=== PATIENT | female | born 1995 | race Two or more races ===

== ENCOUNTER 2024-08-24 21:40 | Observation (INO) | payer MEDICAID, SELFPAY ==
[2024-08-24] VITALS (12 sets, daily range): BP systolic 124–138; BP diastolic 79–84; PULSE 56–75; RESP 19; TEMP 36.6; O2SAT 97–100; BMI 32.5
[2024-08-24 22:34] LABS: Collection Type, Urine Clean Catch
[2024-08-24 22:41] LABS: Bilirubin,Urine Negative (Negative); Blood,Urine Negative (Negative); Clarity,Urine Clear (Clear/Hazy); Color,Urine Lt-Yellow (Lt Yel-Yel); Glucose, Urine Negative (Negative); Ketones,Urine Negative (Negative); Leukocyte Esterase,Urine Negative (Negative); Nitrite,Urine Negative (Negative); PH,Urine 6.5 (5.0-7.0); Protein,Urine Negative (Neg - Trace); RBC,Urine < 1 /hpf (0-3); Specific Gravity,Urine 1.015 (1.001-1.035); Squamous Epithelial Cell,Urine < 1 /hpf (0-5); Urobilinogen,Urine Negative mg/dL (0.0-1.0); WBC,Urine 1 /hpf (0-5)
[2024-08-24 22:42] LABS: Basophils % (Auto) 0 % (0-2.5); Eosinophils % (Auto) 0 % (0-10); Hematocrit 32.4 % (36.0-46.0); Hemoglobin 10.9 g/dL (12.0-16.0); Immature Granulocytes % (Auto) 0 % (0-0); Immature Granulocytes Auto 0.02 Thou/mm3 (0.00-0.00); Lymphocytes # (Auto) 2.1 Thou/mm3 (1.0-4.8); Lymphocytes % (Auto) 34 % (10-50); Mean Corpuscular HGB Conc 33.6 g/dl (31.0-37.0); Mean Corpuscular Hemoglobin 30.6 pg (25.0-35.0); Mean Corpuscular Volume 91 fL (80-100); Monocytes # (Auto) 0.5 Thou/mm3 (0.0-0.8); Monocytes % (Auto) 9 % (0-12); Neutrophils # (Auto) 3.6 Thou/mm3 (1.8-7.7); Neutrophils % (Auto) 57 % (37-80); Nucleated Red Blood Cell % 0 /100 WBC (0); Platelet Count 151 Thou/mm3 (140-440); RDW Standard Deviation 41.1 fL (36.4-46.3); Red Blood Count 3.56 Miln/mm3 (4.00-5.20); White Blood Count 6.3 Thou/mm3 (3.6-11.0)
[2024-08-24 23:05] LABS: Fibrinogen 427 mg/dL (175-375); INR 0.9 (0.9-1.3); Partial Thromboplastin Time 29.6 Seconds (22.0-36.0); Prothrombin Time 9.9 Seconds (9.0-12.2)
[2024-08-24 23:16] LABS: Anion Gap 7 (7-16); BUN/Creatinine Ratio 18 Ratio (12-20); Blood Urea Nitrogen 11 mg/dL (9-23); Carbon Dioxide 18.7 mMol/L (20.0-31.0); Chloride 110 mMol/L (98-107); Creatinine (Component) 0.6 mg/dL (0.6-1.3); Estimated Creatinine Clearance 142.9 mL/min (>60); Potassium 3.9 mMol/L (3.4-5.1); Sodium 136 mMol/L (136-145); eGFR > 60 See Note
[2024-08-24 23:17] LABS: Alanine Aminotransferase 13 U/L (10-49); Albumin, Serum 3.6 gm/dL (3.5-5.0); Albumin/Globulin Ratio 1.5 (1.2-2.2); Alkaline Phosphatase 190 U/L (46-116); Aspartate Amino Transferase 17 U/L (0-34); Bilirubin,Total 0.2 mg/dL (0.3-1.2); Calcium 9.2 mg/dL (8.3-10.6); Calcium (Corrected) 9.5 mg/dL (8.5-10.1); Globulin 2.4 gm/dL (2.3-3.5); Glucose 84 mg/dL (74-106); Osmolality,Calculated 270 (275-295); Uric Acid 4.3 mg/dL (3.1-7.8)
[2024-08-25 00:02] VITALS: PULSE 57; O2SAT 99
[2024-08-25 00:12] VITALS: BP 137/81; PULSE 60
[2024-08-25 00:17] VITALS: PULSE 61; O2SAT 97
[2024-08-25 00:27] VITALS: BP 128/78; PULSE 59
[2024-08-25 00:32] VITALS: PULSE 60; O2SAT 97
--- NOTE | 2024-08-25 00:33 | ESHP_ITS ---
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 So, they checked her blood sugar and it was 180. The patient had a normal 1 hour glucose tolerance test in her and she is not a diabetic. Her blood pressures in the hospital were in the normal range and her blood sugars were normal. While the patient was being monitored in triage, she did experience a prolonged deceleration approximately 3-4 minutes, but returned to baseline. The tracing was category 1 before and after the prolonged deceleration. There are no contractions. HOME MEDICATIONS: 1. multivitamin 1 p.o. daily. 2. Albuterol inhaler 2 puffs q.4h. p.r.n. shortness of breath and wheezing. SOCIAL HISTORY: She denies any alcohol, drug use or smoking. PAST MEDICAL HISTORY: Mild COVID-19 infection 10/2021, latent tuberculosis infection treated with INH for 9 months in 2020, asthma, mild COVID-19 infection 06/2024, Rh negative. FAMILY HISTORY: Diabetes. OBSTETRIC HISTORY: 2016, a 40-week normal vaginal delivery, 6 pound 11 ounce female, complicated by small for gestational age. 2021, a 40-week normal vaginal delivery, 7 pound 3 ounce male, no complications. PAST SURGICAL HISTORY: Denies. REVIEW OF SYSTEMS: She denies any chest pain, palpitations, cough, fever, shortness of breath, or lower extremity pain. PHYSICAL EXAMINATION: VITAL SIGNS: Blood pressure is 132/80, heart rate 88, respirations 18, temperature 98.2. HEENT: Oropharynx and sclerae are clear. LUNGS: Clear to auscultation bilaterally. CARDIOVASCULAR: Heart, regular rate and rhythm. ABDOMEN: Gravid, consistent with estimated weight 6 pounds. PELVIC: Deferred. EXTREMITIES: Nontender. SKIN: No gross rashes or lesions. NEUROLOGIC: No focal deficit. ASSESSMENT: Intrauterine at 36 weeks and 3 days, isolated high blood pressure at work, isolated hyperglycemia at work. Spontaneous prolonged deceleration, resolved. PLAN: Prolonged monitoring, preeclampsia labs. I discussed with the patient the recommended treatment plan. All questions were answered. DT: :06:11 TT: 00:31:00 Ref: [id number] - TID: [id number]
== END 2024-08-25 00:48 | disposition home or self-care (01) ==
PROVIDERS: Admitting Provider Specialist; PCP Specialist; Visit Provider Specialist
DX: O26.893 Other specified pregnancy related conditions, third trimester (principal); R03.0 Elevated blood-pressure reading, without diagnosis of hypertension; R73.9 Hyperglycemia, unspecified; Z3A.36 36 weeks gestation of pregnancy
CPT/HCPCS: 36415; 59899; 80053; 81001; 84550; 85025; 85384; 85610; 85730; 86850; 86900; 86901; G0378; J2274; J2270

== ENCOUNTER 2024-08-29 13:25 | Observation (INO) | payer MEDICAID, SELFPAY ==
[2024-08-29] VITALS (49 sets, daily range): BP systolic 0–130; BP diastolic 0–84; PULSE 52–88; RESP 18; TEMP 36.8–37; O2SAT 96–100; BMI 32.4
--- NOTE | 2024-08-29 14:47 | XR_ITS ---
Examination: Complete OB ultrasound greater than 14 weeks Date and time of exam: August 29, 2024 1521 hrs. Indications: 37 week by history with pelvic contractions beginning today Findings: Viable intrauterine single fetus with single amniotic sac presentation cephalic spine maternal left Cardiac motion 136 BPM Placenta anterior grade 2 Umbilical cord insertion seen Amniotic fluid index 9.4 cm Cervix 3.3 cm Ovaries obscured by bowel gas. Composite estimated gestational age based on BPD, head circumference, abdominal circumference, femur length is 37 weeks 1 day Estimated weight 3151.8 g. Survey of intracranial anatomy, spinal anatomy, abdominal anatomy, four-chamber heart performed with no abnormalities identified. Impression: Viable intrauterine gestation cephalic presentation Estimated gestational age 37 weeks 1 day Estimated weight 3151.8 g.
[2024-08-29] MEDS: RINGERS LACTATED 1000 ML 1,000 ML 999 ML IV (14:50)
[2024-08-29 15:31] LABS: Collection Type, Urine Clean Catch
[2024-08-29 15:34] LABS: Basophils % (Auto) 0 % (0-2.5); Eosinophils % (Auto) 0 % (0-10); Hematocrit 31.2 % (36.0-46.0); Hemoglobin 10.6 g/dL (12.0-16.0); Immature Granulocytes % (Auto) 1 % (0-0); Immature Granulocytes Auto 0.06 Thou/mm3 (0.00-0.00); Lymphocytes # (Auto) 2.5 Thou/mm3 (1.0-4.8); Lymphocytes % (Auto) 22 % (10-50); Mean Corpuscular Hemoglobin 30.3 pg (25.0-35.0); Mean Corpuscular Volume 89 fL (80-100); Monocytes # (Auto) 0.7 Thou/mm3 (0.0-0.8); Monocytes % (Auto) 6 % (0-12); Neutrophils # (Auto) 7.9 Thou/mm3 (1.8-7.7); Neutrophils % (Auto) 71 % (37-80); Nucleated Red Blood Cell % 0 /100 WBC (0); Platelet Count 162 Thou/mm3 (140-440); RDW Standard Deviation 41.1 fL (36.4-46.3); White Blood Count 11.2 Thou/mm3 (3.6-11.0)
[2024-08-29 15:36] LABS: ROM Kit Lot # 57805053; ROM Swab Mixed By: YOUNB; Rupture of Fetal Membranes Negative (Negative); Swb Mxed in Solvent 1 min? Yes
[2024-08-29 15:38] LABS: Bilirubin,Urine Negative (Negative); Blood,Urine Negative (Negative); Clarity,Urine Clear (Clear/Hazy); Color,Urine Lt-Yellow (Lt Yel-Yel); Glucose, Urine Negative (Negative); Ketones,Urine Negative (Negative); Leukocyte Esterase,Urine Negative (Negative); Nitrite,Urine Negative (Negative); Protein,Urine Negative (Neg - Trace); RBC,Urine 1 /hpf (0-3); Squamous Epithelial Cell,Urine 3 /hpf (0-5); Urobilinogen,Urine Negative mg/dL (0.0-1.0); WBC,Urine 2 /hpf (0-5)
[2024-08-29 15:53] LABS: Alanine Aminotransferase 16 U/L (10-49); Albumin, Serum 3.5 gm/dL (3.5-5.0); Albumin/Globulin Ratio 1.5 (1.2-2.2); Alkaline Phosphatase 185 U/L (46-116); Anion Gap 7 (7-16); Aspartate Amino Transferase 18 U/L (0-34); BUN/Creatinine Ratio 22 Ratio (12-20); Bilirubin,Total 0.3 mg/dL (0.3-1.2); Blood Urea Nitrogen 13 mg/dL (9-23); Calcium 8.8 mg/dL (8.3-10.6); Calcium (Corrected) 9.2 mg/dL (8.5-10.1); Carbon Dioxide 20.6 mMol/L (20.0-31.0); Chloride 107 mMol/L (98-107); Creatinine (Component) 0.6 mg/dL (0.6-1.3); Estimated Creatinine Clearance 142.5 mL/min (>60); Globulin 2.3 gm/dL (2.3-3.5); Glucose 76 mg/dL (74-106); LDH (Lactate Dehydrogenase) 208 U/L (120-246); Osmolality,Calculated 269 (275-295); Potassium 3.8 mMol/L (3.4-5.1); Sodium 135 mMol/L (136-145); Total Protein 5.8 gm/dL (5.7-8.2); Uric Acid 5.6 mg/dL (3.1-7.8); eGFR > 60 See Note
[2024-08-29 15:57] LABS: COVID-19 Antigen (In-House) Negative (Negative)
[2024-08-29 15:57] LABS: Fibrinogen 415 mg/dL (175-375); INR 0.9 (0.9-1.3); Partial Thromboplastin Time 25.9 Seconds (22.0-36.0); Prothrombin Time 9.9 Seconds (9.0-12.2)
[2024-08-29] MEDS: MEPERIDINE INJ 50 MG/ML VIAL IM (16:05)
[2024-08-29] MEDS: RINGERS LACTATED 1000 ML 1,000 ML 100 ML IV (16:06)
[2024-08-29] MEDS: ONDANSETRON INJ 2 MG/ML INJ 2 ML 4 MG IV (16:06)
[2024-08-29 16:11] LABS: Syphilis Nonreactive (Nonreactive)
[2024-08-29 17:02] LABS: Creatinine,Random Urine 127 mg/dL (30-125); Protein Total, Random Urine 21 mg/dL (1-14)
[2024-08-29 17:07] LABS: Influenza A Ag Negative; Influenza B Ag Negative
--- NOTE | 2024-08-29 18:03 | PC.NURSE ---
Patient discharged home with significant other, vitals WNL. NST reactive. Patient states pain has improved, rating pain a 0. Patient given discharge education, precautions and reasons to return to hospital. Patient instructed to follow up with OB at next scheduled appt on Tuesday. Patient verbalizes understanding, all questions answered and encouraged.
== END 2024-08-29 18:20 | disposition home or self-care (01) ==
PROVIDERS: Admitting Provider Specialist; Visit Provider Specialist
DX: O47.1 False labor at or after 37 completed weeks of gestation (principal); Z3A.37 37 weeks gestation of pregnancy
CPT/HCPCS: 36415; 59025; 59899; 76805; 80053; 81001; 82570; 83615; 84112; 84156; 84550; 85025; 85384; 85610; 85730; 86780; 86850; 86900; 86901; 87502; 87811; 96372; 96374; J2175; J2405; J7120

== ENCOUNTER 2024-09-06 10:26 | Observation (INO) | payer MEDICAID, SELFPAY ==
[2024-09-06 10:31] VITALS: BMI 32.4
[2024-09-06 10:35] VITALS: BP 114/82; PULSE 85
[2024-09-06] MEDS: MEPERIDINE INJ 50 MG/ML VIAL 75 MG IM (11:20)
[2024-09-06] MEDS: PROMETHAZINE INJ 25 MG/ML VIAL IM (11:21)
== END 2024-09-06 11:40 | disposition home or self-care (01) ==
PROVIDERS: Admitting Provider Specialist; Visit Provider Specialist
DX: O26.893 Other specified pregnancy related conditions, third trimester (principal); M54.9 Dorsalgia, unspecified; R10.2 Pelvic and perineal pain; Z3A.38 38 weeks gestation of pregnancy
CPT/HCPCS: 59025; 59899; 96372; J2175; J2550

== ENCOUNTER 2024-09-11 05:34 | Inpatient (IN) | payer MEDICAID, SELFPAY ==
[2024-09-11] VITALS (89 sets, daily range): BP systolic 110–172; BP diastolic 65–105; PULSE 60–118; RESP 16–18; TEMP 36.6–37.1; O2SAT 87–100; BMI 32.5
[2024-09-11] MEDS: RINGERS LACTATED 1000 ML 1,000 ML 100 ML IV (06:12)
--- NOTE | 2024-09-11 06:21 | PD.LDHP ---
Documentation for date of: 09/11/24 OB Labor/Induct. HPI History of Present Illness : 3 Term pregnancies: 2 pregnancies: 0 Living children: 2 History of Abortions: Spontaneous and Elective: 0 History of sections: No History of : No History of present illness: Dictated in Nuance [id number] Past Medical History Surgical History SURGICAL: Negative Section Meds Home Medications and Allergies Home Medications ?Medication ?Instructions ?Recorded ?Confirmed ?Type vit no.95-ferrous 1 tab PO QDAY 11/21/21 08/29/24 History fumarate 28 mg-folic acid 800 mcg tablet () Allergies Allergy/AdvReac Type Severity Reaction Status Date / Time No Known Allergies Allergy Verified 08/29/24 14:05 OB Exam Physical Exam Vital signs: Pulse BP Pulse Ox 99 136/94 H 93 L 09/11/24 06:16 09/11/24 06:16 09/11/24 06:19 OB Results Labs 09/11/24 06:12
[2024-09-11 06:26] LABS: Basophils % (Auto) 0 % (0-2.5); Eosinophils % (Auto) 0 % (0-10); Hematocrit 35.3 % (36.0-46.0); Immature Granulocytes % (Auto) 0 % (0-0); Immature Granulocytes Auto 0.04 Thou/mm3 (0.00-0.00); Lymphocytes # (Auto) 2.9 Thou/mm3 (1.0-4.8); Lymphocytes % (Auto) 32 % (10-50); Mean Corpuscular Hemoglobin 30.1 pg (25.0-35.0); Mean Corpuscular Volume 89 fL (80-100); Monocytes # (Auto) 0.7 Thou/mm3 (0.0-0.8); Monocytes % (Auto) 8 % (0-12); Neutrophils # (Auto) 5.4 Thou/mm3 (1.8-7.7); Neutrophils % (Auto) 60 % (37-80); Nucleated Red Blood Cell % 0 /100 WBC (0); Platelet Count 156 Thou/mm3 (140-440); RDW Standard Deviation 41.1 fL (36.4-46.3); Red Blood Count 3.99 Miln/mm3 (4.00-5.20); White Blood Count 9.1 Thou/mm3 (3.6-11.0)
--- NOTE | 2024-09-11 06:32 | ESHP_ITS ---
RE: KEVEN PATIÑO : 1995 DATE OF ADMISSION: 09/11/2024 HISTORY OF PRESENT ILLNESS: This is a 29-year-old gravity 3, para 2-0-0-2 with a due date of 09/18/2024 with intrauterine of 39 weeks who presents to the hospital complaining of labor pains and is noted to be in active labor. She denies any leaking or bleeding. She reports normal movement. MEDICATIONS: 1. multivitamin 1 p.o. daily. 2. Albuterol inhaler 2 puffs every 4 hours p.r.n. shortness of breath and wheezing. PAST MEDICAL HISTORY: Asthma, mild, COVID-19 infection in 10/2021, latent tuberculosis infection treated with INH for 9 months in 2020, mild COVID-19 infection in 06/2024, and Rh negative. SOCIAL HISTORY: She denies any alcohol, drug use, or smoking. FAMILY HISTORY: Diabetes. OBSTETRIC HISTORY: In 2016, 40-week, normal vaginal delivery, 6 pound 11 ounce female complicated by small for gestational age; in 2021, 40-week normal vaginal delivery, 7 pound 3 ounce male, no complications. PAST SURGICAL HISTORY: Denies. REVIEW OF SYSTEMS: She denies any chest pain, palpitations, cough, fever, shortness of breath, or lower extremity pain. She denies any headache, change in vision, or right upper quadrant pain. PHYSICAL EXAMINATION: VITAL SIGNS: Blood pressure 142/94 mmHg, heart rate 88, respirations 18, and temperature 98.2. HEENT: Oropharynx and sclerae are clear. LUNGS: Clear to auscultation bilaterally. HEART: Regular rate and rhythm. ABDOMEN: Gravid consistent with estimated weight 7.5 pounds. PELVIC: See RN notes. EXTREMITIES: Nontender. SKIN: No gross rashes or lesions. NEUROLOGIC: No focal deficits. ASSESSMENT AND PLAN: Intrauterine of 39 weeks, active labor. Elevated BP. Anticipate spontaneous vaginal delivery. Workup for elevated blood pressure. Informed consent was obtained. The patient was made aware of the risks, complications, alternatives, and benefits of the proposed procedure and she agrees. She is aware of the risk of operative vaginal delivery, delivery and agrees with these modes of delivery if indicated. DT: 06:17:08 TT: 06:31:00 Ref: [id number] - TID: [id number] MTDD
[2024-09-11] MEDS: RINGERS LACTATED 1000 ML 1,000 ML 999 ML IV (07:02)
[2024-09-11 07:15] LABS: Collection Type, Urine Clean Catch
[2024-09-11 07:24] LABS: Syphilis Nonreactive (Nonreactive)
--- NOTE | 2024-09-11 07:31 | PD.LDPN ---
Documentation for date of: 09/11/24 OB Labor Progress Note Pain Control Comments: Epidural Pelvic Exam Dilation (cm): 7 Effacement (%): 80 station: -1 Amniotic membrane status: Intact Comments: Vtx Contractions Contraction frequency: q 3 min Status status: Category l Assessment and Plan Comments: Anticipate
[2024-09-11 07:40] LABS: Bilirubin,Urine Negative (Negative); Blood,Urine 2+ (Negative); Clarity,Urine Clear (Clear/Hazy); Color,Urine Yellow (Lt Yel-Yel); Glucose, Urine Negative (Negative); Ketones,Urine Negative (Negative); Leukocyte Esterase,Urine Negative (Negative); Nitrite,Urine Negative (Negative); PH,Urine 7.5 (5.0-7.0); Protein,Urine 1+ (Neg - Trace); RBC,Urine 2 /hpf (0-3); Specific Gravity,Urine 1.024 (1.001-1.035); Squamous Epithelial Cell,Urine 2 /hpf (0-5); WBC,Urine 1 /hpf (0-5)
[2024-09-11 08:38] LABS: Alanine Aminotransferase 14 U/L (10-49); Albumin, Serum 3.5 gm/dL (3.5-5.0); Albumin/Globulin Ratio 1.7 (1.2-2.2); Alkaline Phosphatase 185 U/L (46-116); Anion Gap 9 (7-16); Aspartate Amino Transferase 18 U/L (0-34); BUN/Creatinine Ratio 17 Ratio (12-20); Bilirubin,Total 0.4 mg/dL (0.3-1.2); Blood Urea Nitrogen 10 mg/dL (9-23); Calcium 8.6 mg/dL (8.3-10.6); Carbon Dioxide 19.7 mMol/L (20.0-31.0); Chloride 107 mMol/L (98-107); Creatinine (Component) 0.6 mg/dL (0.6-1.3); Estimated Creatinine Clearance 142.9 mL/min (>60); Globulin 2.1 gm/dL (2.3-3.5); Glucose 88 mg/dL (74-106); Osmolality,Calculated 269 (275-295); Potassium 3.4 mMol/L (3.4-5.1); Sodium 136 mMol/L (136-145); Total Protein 5.6 gm/dL (5.7-8.2); Uric Acid 4.4 mg/dL (3.1-7.8); eGFR > 60 See Note
[2024-09-11] MEDS: ONDANSETRON INJ 2 MG/ML INJ 2 ML 4 MG IV (09:20)
[2024-09-11 10:12] LABS: Fibrinogen 415 mg/dL (175-375); INR 0.9 (0.9-1.3); Partial Thromboplastin Time 26.9 Seconds (22.0-36.0)
[2024-09-11] MEDS: OXYTOCIN in NS 20 units 20 UNIT/1,000 ML BAG 125 UNIT IV (10:26)
[2024-09-11] MEDS: TRANEXAMIC ACID 1,000 MG IVPB 1,000 MG/100 ML BAG 200 MG IV (10:40)
[2024-09-11] MEDS: BENZO/LANO/ALOE (Dermoplast) 60 GM CAN 1 SPRAY TOP (10:50)
[2024-09-11] MEDS: IBUPROFEN TAB 400 MG TABLET 800 MG PO (14:50)
[2024-09-11 16:19] LABS: Basophils % (Auto) 0 % (0-2.5); Eosinophils % (Auto) 0 % (0-10); Hematocrit 31.8 % (36.0-46.0); Hemoglobin 10.8 g/dL (12.0-16.0); Immature Granulocytes % (Auto) 0 % (0-0); Immature Granulocytes Auto 0.05 Thou/mm3 (0.00-0.00); Lymphocytes # (Auto) 1.5 Thou/mm3 (1.0-4.8); Lymphocytes % (Auto) 10 % (10-50); Mean Corpuscular Hemoglobin 30.5 pg (25.0-35.0); Mean Corpuscular Volume 90 fL (80-100); Monocytes # (Auto) 1.3 Thou/mm3 (0.0-0.8); Monocytes % (Auto) 9 % (0-12); Neutrophils # (Auto) 12.2 Thou/mm3 (1.8-7.7); Neutrophils % (Auto) 81 % (37-80); Nucleated Red Blood Cell % 0 /100 WBC (0); Platelet Count 126 Thou/mm3 (140-440); RDW Standard Deviation 42.2 fL (36.4-46.3); Red Blood Count 3.54 Miln/mm3 (4.00-5.20)
[2024-09-11] MEDS: ACETAMINOPHEN 325 MG TABLET 650 MG PO (20:49)
[2024-09-12] VITALS: BP 118/82; PULSE 77; RESP 18; TEMP 36.9; O2SAT 98
[2024-09-12 04:00] VITALS: BP 135/87; PULSE 72; RESP 16; TEMP 36.8; O2SAT 96
[2024-09-12] MEDS: HYDROcodone/APAP 5/325 TABLET 1 TAB PO (04:10)
--- NOTE | 2024-09-12 06:50 | PD.LDDELS ---
Data ([facility]) Data Hx Section: No : 3 Para: 2 Term: 2 : 0 : 0 Delivery Data ([facility]) Labor Data ROM Date: 09/11/24 ROM Time: 09:31 Rupture Type: SROM Amniotic Fluid: Clear Delivery Data EDC: 09/18/24 EDC calculated by:: LMP/early US confirmation Labor Onset Stage 1 Date: 09/11/24 Labor Onset Stage 1 Time: 02:00 Labor Onset Stage 2 Date: 09/11/24 Labor Onset Stage 2 Time: 10:10 Delivery Date: 09/11/24 Delivery Time: 10:25 Gestational age (weeks): 39 Gestational age (days): 0 Placenta Delivery Date: 09/11/24 Placenta Delivery Time: 10:29 Delivered by: Jean Matias Delivery nurse: Justin Sanderson Other staff at delivery: Nursery Nurse Other staff at delivery: Nurse Other staff at delivery: Sneha Melo Other staff at delivery: Jasmyne Garcia Delivery Method Delivery: Vaginal Delivery Type: Spontaneous Presentation: Vertex Position: OA Anesthesia Type Primary Anesthesia: Epidural Placenta Placenta Delivery: Spontaneous Cord Sample: Cord Blood Obtained EBL Estimated blood loss (ml): 250 Umbilical Cord Umbilical Vessels: 3 Nuchal Cord: None Body Cord: None Additional Procedures None Complications Complications: None Lind Data ([facility]) Lind Data Gender: Male Weight Grams: 3570 1 Minute Total: 8 5 Minute Total: 9
--- NOTE | 2024-09-12 07:35 | ESPR_ITS ---
RE: KEVEN PATIÑO : 1995 DATE OF SERVICE: 09/12/2024 day number 1. The patient denies any problem or complaints. She is voiding. She is ambulating. She is tolerating diet. She is passing flatus. She denies any excessive vaginal bleeding. She denies any dizziness or lightheadedness. She denies any chest pain, palpitations, shortness of breath or lower extremity pain. She denies any depression or anxiety. OBJECTIVE: VITAL SIGNS: Blood pressure 135/87, heart rate 72, respirations 16, temperature is 98.2, pulse ox is 96% on room air. LUNGS: Clear to auscultation bilaterally. HEART: Regular rate and rhythm. ABDOMEN: Fundus is firm. EXTREMITIES: Nontender. Hemoglobin pre-delivery is 12.0, post delivery is 10.8. ASSESSMENT: day number 1, status post spontaneous vaginal delivery. Gestational hypertension with stable blood pressures. PLAN: Discharge home. Discharge instructions given. Follow up in the office in 6 weeks. DT: 06:49:42 TT: 07:33:00 Ref: [id number] - TID: [id number]
[2024-09-12] MEDS: IBUPROFEN TAB 400 MG TABLET 800 MG PO (07:37)
[2024-09-12 08:15] VITALS: BP 124/87; PULSE 88; RESP 18; TEMP 36.8; O2SAT 98
== END 2024-09-12 12:58 | disposition home or self-care (01) | DRG 560 ==
LOC: S4SX 10:34 → S4NX 13:36
PROVIDERS: Admitting Provider Specialist; Visit Provider Specialist
DX: O13.4 Gestational [pregnancy-induced] hypertension without significant proteinuria, complicating childbirth (principal); Z3A.39 39 weeks gestation of pregnancy; Z37.0 Single live birth
CPT/HCPCS: 36415; 59025; 80053; 81001; 84550; 85025; 85384; 85610; 85730; 86780; 86850; 86900; 86901; J2405; J2590; J2795; J3010; J3490; J7120; A9270

== ENCOUNTER 2025-09-03 05:50 | Day surgery (SDC) | payer MEDICAID, SELFPAY ==
[2025-08-28 11:42] VITALS: BMI 32.6
[2025-08-28 12:24] LABS: Basophils # (Auto) 0.0 Thou/mm3 (0.0-0.2); Basophils % (Auto) 0 % (0-2.5); Eosinophils # (Auto) 0.1 Thou/mm3 (0.0-0.5); Eosinophils % (Auto) 1 % (0-10); Hematocrit 40.7 % (36.0-46.0); Hemoglobin 13.4 g/dL (12.0-16.0); Immature Granulocytes Auto 0.03 Thou/mm3 (0.00-0.00); Lymphocytes # (Auto) 2.3 Thou/mm3 (1.0-4.8); Lymphocytes % (Auto) 33 % (10-50); Mean Corpuscular HGB Conc 32.9 g/dl (31.0-37.0); Mean Corpuscular Hemoglobin 30.0 pg (25.0-35.0); Mean Corpuscular Volume 91 fL (80-100); Monocytes # (Auto) 0.5 Thou/mm3 (0.0-0.8); Monocytes % (Auto) 7 % (0-12); Neutrophils # (Auto) 4.1 Thou/mm3 (1.8-7.7); Neutrophils % (Auto) 58 % (37-80); Nucleated Red Blood Cell # 0.00 Thou/mm3 (0.00-0.00); Nucleated Red Blood Cell % 0 /100 WBC (0); Platelet Count 214 Thou/mm3 (140-440); RDW Standard Deviation 40.4 fL (36.4-46.3); Red Blood Count 4.46 Miln/mm3 (4.00-5.20); White Blood Count 7.1 Thou/mm3 (3.6-11.0)
[2025-08-28 12:30] LABS: INR 1.0 (0.9-1.3); Partial Thromboplastin Time 29.8 Seconds (22.0-36.0); Prothrombin Time 10.3 Seconds (9.0-12.2)
[2025-08-28 12:38] LABS: Alanine Aminotransferase 24 U/L (10-49); Albumin, Serum 5.0 gm/dL (3.5-5.0); Albumin/Globulin Ratio 1.9 (1.2-2.2); Alkaline Phosphatase 110 U/L (46-116); Anion Gap 9 (7-16); Aspartate Amino Transferase 22 U/L (0-34); BUN/Creatinine Ratio 15 Ratio (12-20); Bilirubin,Total 0.4 mg/dL (0.3-1.2); Blood Urea Nitrogen 12 mg/dL (9-23); Calcium 9.3 mg/dL (8.3-10.6); Calcium (Corrected) 9.3 mg/dL (8.5-10.1); Carbon Dioxide 28.1 mMol/L (20.0-31.0); Chloride 107 mMol/L (98-107); Creatinine (Component) 0.8 mg/dL (0.6-1.3); Estimated Creatinine Clearance 106.3 mL/min (>60); Globulin 2.7 gm/dL (2.3-3.5); Glucose 95 mg/dL (74-106); Osmolality,Calculated 286 (275-295); Potassium 4.2 mMol/L (3.4-5.1); Sodium 144 mMol/L (136-145); Total Protein 7.7 gm/dL (5.7-8.2); eGFR > 60 See Note
[2025-08-28 12:39] LABS: HCG,Qualitative Serum Negative
[2025-09-03] VITALS (9 sets, daily range): BP systolic 116–140; BP diastolic 66–83; PULSE 77–99; RESP 12–20; TEMP 36.2–36.7; O2SAT 95–100; BMI 32.5
[2025-09-03] MEDS: RINGERS LACTATED 1000 ML 1,000 ML 20 ML IV (06:39)
--- NOTE | 2025-09-03 09:15 | SUR.PHASEI ---
0915 patient arrived to recovery resting comfortably in [facility], on oxygen 10L via oxy mask with an oral airway in place, breathing unlabored, vital signs stable, dressing intact to abdome; dissolvable sutures, gauze, medipore tape, no bleeding noted, report received from Lorraine BANDA and Dr. Marcano
--- NOTE | 2025-09-03 09:44 | ESOP_ITS ---
Date of Procedure 09/03/25 Pre Op Diagnosis Symptomatic cholelithiasis Post Op Diagnosis Same Procedure Laparoscopic cholecystectomy Findings Patient was found to have 2 small stones and noninflamed gallbladder Procedure Description After endotracheal anesthesia was given the patient was placed in supine position and the abdomen was prepped with chloroprep solution and draped in a sterile manner. After time out was performed I injected a few cc of of half percent Marcaine with epinephrine below the umbilicus and I made an incision for about 3 cm in length. The fascia was cleaned and Veress needle was inserted to create a pneumoperitoneum up to 15 mmHg. Then introduced a 12 mm trocar and a 10 mm camera through the fascia and I inspected the intra-abdominal organs as well as the gallbladder and the liver. Another 5 mm trocar was inserted in the epigastric region under direct vision after injecting some local anesthesia. At this time the patient was kept in reverse Trendelenburg position with the left lateral tilt. The third 5 mm trocar was inserted over the mid axillary line under direct vision and a Iraj and Angelo grasper was used to hold the fundus of the gallbladder. The retraction was carried out by the assistant director of plant operations moving the fundus of the gallbladder towards the right shoulder of the patient to create enough traction. I placed a another 5 mm trocar in the midaxillary line just lateral to the rectus muscle under direct vision. I used a fenestrated grasper to retract the neck of the gallbladder laterally towards the patient's right hip. The Calot's triangle was exposed and I achieved the critical view of safety as follows: I dissected out the fatty tissue from the hepatocystic triangle and cleared this area. I also dissected inferior and posterior to the gallbladder to identify the cystic duct and the gallbladder wall. Then superiorly I dissected along the cystic plate up to lower one third third of the gallbladder to lift the gallbladder from the liver. At this time I confirmed that only 2 structures entering the gallbladder were cystic artery and the cystic duct. The common duct was seen distally but no dissection was carried out around the duct. I did not see any need for operative cholangiogram in this patient. The cystic duct was clipped doubly and then divided and cystic artery was similarly dealt with. Then the gallbladder was removed from the liver bed using Harmonic verenice to control the small blood vessels as the dissection proceeded. Then the gallbladder was from the liver bed completely and delivered through the umbilical port using an Endopouch. The liver bed was coagulated with cautery to obtain satisfactory hemostasis. The trocars were pulled out from the abdominal cavity and the fascia at the umbilical incision was closed with interrupted 0 Ethibond. Subcutaneous tissues was closed with 3- 0 chromic and injected a few cc of half percent Marcaine with epinephrine and the skin was closed with interrupted 4-0 nylon stitches at all the trocar sites. Dressing was applied with 2 x 2 and Tegaderm. Patient tolerated the procedure well and returned to recovery room in stable condition. Anesthesia GETA Pathology / specimen Other IVF Infused 800 Estimated Blood Loss 30 Condition Stable Disposition PACU Surgeon Nahun Hurst MD Surgical Staff Operation Date: 09/03/25 08:00 Case Staff Anesthesiologist: Isac Marcano RN First Assistant: Alvina Lugo
[2025-09-03] MEDS: fentaNYL CIT INJ 50 mCg/ML AMP 2ML 25 MCG IVP ×2 (10:05→10:14)
--- NOTE | 2025-09-03 10:40 | SUR.PHASEII ---
1040 Patient meets discharge criteria from recovery, awake and alert, breathing unlabored, vital signs stable, denies pain and nausea, dressing intact; no bleeding noted, assisted with dressing into her clothing by this consumer loan underwriter, discharge instructions given to patient and patients , signed discharge instructions. Patient given all her belongings prior to discharge, transported via wheelchair and left in a private vehicle.
== END 2025-09-03 10:40 | disposition home or self-care (01) ==
PROVIDERS: Referring Provider Surgery; Visit Provider Surgery
PROC: 0FT44ZZ Resection of Gallbladder, Percutaneous Endoscopic Approach (ICD-10-PCS; CPT 47562; principal; 2025-09-03 08:00)
DX: K80.10 Calculus of gallbladder with chronic cholecystitis without obstruction (principal)
CPT/HCPCS: 47562; 36415; 80053; 84703; 85025; 85610; 85730; A4217; A4649; J0131; J1100; J1885; J2250; J2405; J2704; J3010; J3490; J7120; A9270